=== PATIENT | female | born 1965 | race Caucasian/White ===

== ENCOUNTER 2025-03-31 16:14 | Emergency (ER) | payer OTHER, SELFPAY ==
[2025-03-31 16:14] VITALS: BMI 48.7
[2025-03-31 16:26] VITALS: BP 143/95
[2025-03-31 19:18] VITALS: BP 115/49
[2025-03-31] MEDS: DILAUDID 0.5 MG IV (19:44)
[2025-03-31] MEDS: ZOFRAN 4 MG IV (19:44)
[2025-03-31 20:00] VITALS: BP 124/68
--- NOTE | 2025-03-31 22:20 | ED.MUSCINJ ---
HPI-Injury
General
Chief Complaint: Musculo-Skeletal Complaint
Source: patient
Exam Limitations: none
Time Seen by Provider: 03/31/25 19:22
Nursing documentation reviewed up to this point in time: agreed with
History of Present Illness-Injury
Is this injury a work related problem?: No
Is pt an associate of [facility]?: No
Initial Injury comments:
Patient states she slipped at home and 'did a split'. Unable to get self up. Denies hitting her head. Complains of pain to left thigh. Brought to ED via EMS for eval.
Past History
Past History
ED Past Medical History: HTN
ED Past Surgical History:
Social History
Tobacco: Non-smoker
Alcohol: None
Personal: Single
Living: alone
Employment: Employed
Family History
Family History: CAD
Review of Systems
Review of Systems
Allergies reviewed?: Yes
All Other Systems: ROS reviewed and negative except as documented in HPI and ROS
Constitutional: Reports no symptoms
EENT: Reports no symptoms
Respiratory: Reports no symptoms
Cardiac: Reports no symptoms
ABD/GI: Reports no symptoms
: Reports no symptoms
Musculoskeletal: Reports joint pain (pain to left thigh)
Skin: Reports no symptoms
Neurological: Reports no symptoms
Psychiatric: Reports no symptoms
Musculoskeletal Injury Exam
Musculoskeletal Injury Exam
Left Thigh:
Pain with Movement?: Moderate
Tender to palpation?: Moderate
Soft tissue swelling?: None
External deformity and angulation?: None
Joint effusion?: None
Contusion?: None
Hematoma-local bleeding into tissue?: None
Strain- Sprain- Tear (Connective tissue injury)?: Moderate
Crepitus with movement?: No
Joint instability?: No
Malalignment/deformity?: No
Range of motion: Limited
Distal skin color and temperature: normal-warm & good color
Capillary Refill: normal
Normal distal neurovascular exam?: Yes
Peripheral Pulses: posterior tibial (left): 3+ and dorsalis pedis (left): 3+
Phy Exam
General Physical Exam
General Presentation: well appearing and no apparent distress
General age: appears stated age
General Skin: warm and dry
General Habitus: normal
General Mental: alert
Musculoskeletal Exam
Musculoskeletal Exam: neuro vasc intact and other (pain to left thigh)
Skin Exam
Skin Exam: normal color, warm/dry and no rash
Psychiatric Exam
Psychiatric Exam: normal mood/affect
Injury Course
Orders/Labs/Results
Orders:
Orders
03/31/25 19:36
HYDROmorphone [Dilaudid] 0.5 mg IV NOW STA
Ondansetron Injectable [Zofran] 4 mg IV NOW STA
03/31/25 19:37
Femur, Left 2 View [CR Femur - Left Min 2 Vw] Urgent
Comment:
Reason For Exam: fall
Pelvis, 1 or 2 Views CR [CR Pelvis - 1 Or 2 Views ] Urgent
Comment:
Reason For Exam: fall
03/31/25 22:04
Ibuprofen [Motrin] 800 mg PO NOW STA
*Radiology
Radiology exam reviewed: radiology read reviewed
*Pulse Oximetry
Patient hypoxic: no
*Critical Care Note
Total Time (30-74mins, 75-104mins- exclusive of procedures): Not Applicable
Update Note
Update Note:
Patient to ED after slip and fall at home. No head injury. Complains of pain to left thigh. Xrays reviewed. No fx noted. Improved ith IC pain medication. Able to stand with use of walker. WIll discharge home with walker, she will continue ice
and ibuprofen. SHe requested prednisone for sciatic pain from fall, rx sent along with short course of pain medication. Discharged home accompanied by spouse.
ED Attending Note
-
Portions of this chart may have been created with voice recognition software.� Occasional wrong word or��sound alike� substitutions may have occurred due to the inherent limitations of voice recognition software.
Discharge Plan
Departure
Patient Disposition: Home (Routine Discharge)
Date of Disposition: 03/31/25
Time of Disposition: 22:04
Patient with high blood pressure during this ER visit?: No
Condition: Good
Covid-19: Not Applicable
Discharge Problem:
Acute thigh pain
Instructions: Muscle and Bone Pain (DC), Ibuprofen, Using Cold for Pain
Prescriptions:
New
ibuprofen 800 mg tablet
800 mg PO Q8H PRN (Reason: Pain) Qty: 20 0RF
hydrocodone-acetaminophen 5-325 mg tablet
1 tab PO Q4H PRN (Reason: Pain) Qty: 10 0RF
prednisone 10 mg Tablet
See Rx Instructions .ROUTE .COMPLEX Qty: 30 0RF
Rx Instructions:
Take By Mouth:
40 mg daily x3 days, 30 mg daily x3 days,
20 mg daily x3 days, 10 mg daily x3 days.
No Action
ascorbic acid (vitamin C) [Vitamin C] 500 MG tablet
500 mg PO BID
Patient Comments:
takes chewables
ibuprofen 200 MG tablet
800 mg PO Q6HPRN PRN (Reason: pain)
docosahexaenoic acid-epa 1 CAP capsule
1 cap PO DAILY
Patient Comments:
takes gummies
hydrochlorothiazide 12.5 MG tablet
25 mg PO DAILY
flaxseed oil 1,000 MG capsule
2 tab PO DAILY
omeprazole 20 MG capsule,delayed release(DR/EC)
20 mg PO BID
cholecalciferol (vitamin D3) [Vitamin D3] 1,000 UNIT capsule
1 tab PO DAILY
olive leaf extract 250 MG capsule
2 tab PO DAILY
vitamin E (dl, acetate) 1,000 UNIT capsule
1,000 unit PO DAILY
Lactobacillus acidophilus [Probiotic] 1 EACH capsule
2 ea PO DAILY
albuterol sulfate [ProAir RespiClick] 90 MCG aerosol powdr breath activated
90 mcg IH PRN PRN (Reason: sob)
lorazepam 0.5 MG tablet
0.5 mg PO Q4HPRN PRN (Reason: anxiety) Qty: 4 0RF
Referrals:
[facility] [Outside] (Physician Referral)
UNKNOWN - PT DOES,NOT KNOW [Family Provider] -
Interventions
Interventions:
*Risk Screen - Suicide Last Done: 03/31/25 16:15
*General Assessment Last Done: 03/31/25 16:15
*Neglect/Abuse Screening Last Done: 03/31/25 16:15
*ED- Fall Risk Assessment Last Done: 03/31/25 16:15
*Nursing Disposition Last Done: 03/31/25 22:25
ED-Musculoskeletal Assessment Last Done: 03/31/25 16:15
Discharge Date and Time
Discharge Date/Time: 03/31/25 22:44
Print Language: RUSSIAN
[2025-03-31] MEDS: MOTRIN 800 MG PO (22:23)
== END 2025-03-31 22:44 | disposition home or self-care (01) ==
LOC: EMR 16:14
PROVIDERS: EMERGENCY PHYSICIAN Student in an Organized Health Care Education/Training Program
DX: M79.652 Pain in left thigh (principal); W19.XXXA Unspecified fall, initial encounter; I10 Essential (primary) hypertension; Z82.49 Family history of ischemic heart disease and other diseases of the circulatory system
CPT/HCPCS: 99283; 96374; 96375; 72170; 73552